=== PATIENT | female | born 1990 | race Caucasian/White ===

== ENCOUNTER → 2018-07-30 | Outpatient (REF) | LOC: M LAB LCGH 15:47 | PROVIDERS: ATTEND Obstetrics & Gynecology | DX: O43.90 Unspecified placental disorder, unspecified trimester (principal) ==

== ENCOUNTER → 2018-10-16 | Outpatient (REF) | payer OTHER | LOC: M LAB LCGH 16:30 | PROVIDERS: ATTEND Obstetrics & Gynecology | DX: L91.8 Other hypertrophic disorders of the skin (principal) ==

== ENCOUNTER → 2022-02-24 | Outpatient (CLI) | payer OTHER | LOC: M PLALAB 16:10 | PROVIDERS: ATTEND Nurse Practitioner Family | DX: Z80.3 Family history of malignant neoplasm of breast (principal); Z80.41 Family history of malignant neoplasm of ovary ==